=== PATIENT | female | born 2000 | race Asian ===

== ENCOUNTER 2023-01-14 17:56 | Emergency (ER) | payer OTHER, SELFPAY ==
[2023-01-14 18:00] VITALS: BP 120/82; PULSE 99; RESP 18; TEMP 37; O2SAT 100; BMI 18.0
[2023-01-14 20:00] VITALS: O2SAT 99
--- NOTE | 2023-01-14 20:08 | CRLHL7_ITS ---
For Patients: As a result of the Century Cures Act, medical imaging exams and procedure reports are released immediately into your electronic medical record. You may view this report before your referring provider. If you have questions, please contact your health care provider. INDICATION: Abdominal pain. TECHNIQUE: CT abdomen and pelvis acquired with 56 cc Isovue 370 IV contrast. COMPARISON: None. FINDINGS: Lower chest: Unremarkable. Liver: Unremarkable. Normal in size and attenuation. No suspicious masses. Gallbladder and bile ducts: Unremarkable. No stones or inflammation. No biliary ductal dilatation. Spleen: Unremarkable. Normal in size. No masses. Adrenal glands: Unremarkable. No nodules. Pancreas: Unremarkable. No mass or inflammation. Kidneys: Unremarkable. No suspicious masses, stones, or hydronephrosis. GI tract: Unremarkable. Normal in caliber. No evidence of obstruction. Appendix is not well visualized, however there is no evidence of right lower quadrant inflammatory stranding. Lymph nodes: No lymphadenopathy. Vasculature: Unremarkable. Omentum/Peritoneum/Abdominal Wall: Unremarkable. No free air or significant free fluid. Pelvis: Unremarkable. Bones: Unremarkable for age. IMPRESSION: No acute abdominal or pelvic abnormality. Please note that all CT scans at this facility use dose modulation, iterative reconstruction, and/or weight-based dosing when appropriate to reduce radiation dose to as low as reasonably achievable. Dictated by Donis Yin MD @ 01/14/2023 9:48:06 PM (Electronically Signed)
--- NOTE | 2023-01-14 20:19 | ED.GENADULT ---
HPI - General Adult General Chief complaint: Abdominal Pain Stated complaint: Vomiting blood Time Seen by Provider: 01/14/23 20:02 History of Present Illness HPI narrative: Patient is a healthy 22-year-old woman who has been having abdominal pain and vomiting for the last 10 days. Symptoms have been escalating for last 2-3 days she has had a small amount of blood in her stool and her vomitus. She states she is not sexually active and is not . She has had no fevers no chills no night sweats no cough no shortness of breath. She is concerned that her father has a history of lymphoma a but she has not noticed any lumps or bumps. She takes no anticoagulants. She has no other complaints or concerns at this time. Related Data Home Medications Medication Instructions Recorded Confirmed Concerta 01/14/23 Lexapro 01/14/23 Allergies Allergy/AdvReac Type Severity Reaction Status Date / Time No Known Drug Allergies Allergy Verified 01/14/23 20:34 Review of Systems Status of ROS: Reports: 10 or more systems reviewed and unremarkable except as noted in History and below Exam Narrative: Exam Narrative: EXAM GENERAL: Patient appears comfortable and well. EYES: No scleral icterus. LYMPH: No supraclavicular or cervical lymphadenopathy. SKIN: Visible skin seen during exam normal or with benign process only. EXT: No dependent lower extremity pedal edema. HEART: Regular rate and rhythm with no murmurs, rubs, or gallops. LUNGS: Clear to auscultation bilaterally with no crackles or wheezes. ABD: Soft, non tender, non distended. PSYCH: Good eye contact, speech is not pressured. Const: Vital Signs, click to edit/add: Vital Signs - 24 hr 01/14/23 18:00 Temperature 98.6 F Pulse Rate [Right Femoral] 99 Respiratory Rate 18 Blood Pressure [Ri ght Upper Arm] 120/82 Pulse Oximetry 100 Oxygen Delivery Me thod Room Air Course Course ED Course: Patient seen examined. CT of the abdomen pelvis CBC CMP amylase ordered. Vital Signs Vital signs: Initial Vital Signs Temperature 98.6 F 01/14/23 18:00 Temperature Source Temporal Artery Scan 01/14/23 18:00 Pulse Rate 99 01/14/23 18:00 Respiratory Rate 18 01/14/23 18:00 Blood Pressure 120/82 01/14/23 18:00 Blood Pressure Mean 94 01/14/23 18:00 Blood Pressure Position Sitting 01/14/23 18:00 Pulse Oximetry 100 01/14/23 18:00 Oxygen Delivery Method Room Air 01/14/23 18:00 Vital Signs Temperature 98.6 F 01/14/23 18:00 Pulse Rate 99 01/14/23 18:00 Respiratory Rate 18 01/14/23 18:00 Blood Pressure 120/82 01/14/23 18:00 Pulse Oximetry 100 01/14/23 18:00 Oxygen Delivery Method Room Air 01/14/23 18:00 Temperature 98.6 F 01/14/23 18:00 Pulse Rate 99 01/14/23 18:00 Respiratory Rate 18 01/14/23 18:00 Blood Pressure 120/82 01/14/23 18:00 Pulse Oximetry 100 01/14/23 18:00 Oxygen Delivery Method Room Air 01/14/23 18:00 Medical Decision Making MDM Narrative Medical decision making narrative: Patient presents with refractory nausea and vomiting. She on her laboratory studies does have what appears to be a chronic microcytic anemia. CT of the abdomen pelvis is unremarkable electrolytes are unremarkable. Her exam is normal with the exception that she is very thin. She does have heavy menses. She is on iron supplementation. At this time I do think the best course of action is to treat her vomiting with Zofran and recommend outpatient follow-up with bulk fluids handler. Give her copy my card so can help facilitate her follow-up. Lab Data Labs: Lab Results 01/14/23 Range/Units 20:10 WBC 5.65 (4.50-11.00) K/uL RBC 4.31 (4.00-5.20) m/uL Hgb 8.6 L (12.0-16.0) gm/dL Hct 29.8 L (33.0-51.0) % MCV 69 L (80-100) fL MCH 20 L (26-34) pg MCHC 29 L (32-36) gm/dL RDW Coeff of Ulises 17.0 H (11.5-15.5) % Plt Count 274 (140-440) K/uL Neut % (Auto) 37.1 L (42.0-72.0) % Lymph % (Auto) 54.2 H (20-44) % Barnwell % (Auto) 6.0 (0.0-11.0) % Eos % (Auto) 1.4 (0.0-7.0) % Baso % (Auto) 1.1 (0.0-3.0) % Neut # (Auto) 2.10 (1.7-7.0) K/uL Lymph # (Auto) 3.10 H (0.90-2.90) K/uL Barnwell # (Auto) 0.30 (0.00-0.90) K/UL Eos # (Auto) 0.08 (0.00-0.50) K/uL Baso # (Auto) 0.06 (0.00-0.30) K/uL Abs Immat Gran (auto) 0.01 (0.00-0.30) K/uL Imm/Tot Granulo (auto) 0.2 % Sodium 141 (135-149) mmol/L Potassium 3.8 (3.6-5.1) mmol/L Chloride 105 (96-114) mmol/L Carbon Dioxide 24 (20-32) mmol/L Anion Gap 12 (7-15) mEq/L BUN 14 (5-24) mg/dL Creatinine 0.7 (0.5-1.5) mg/dL Estimated Creat Clear 103.81 Estimated GFR 125 ml/min Glucose 89 (60-115) mg/dL Calcium 10.1 (8.4-10.6) mg/dL Total Bilirubin 0.4 (0.1-1.5) mg/dL AST 29 (12-35) U/L ALT 9 (4-35) U/L Alkaline Phosphatase 43 (40-150) U/L Total Protein 8.0 (6.0-8.3) g/dL Albumin 4.8 (3.3-5.0) g/dL Amylase 91 H (18-89) U/L Discharge Plan Discharge Clinical Impression: Vomiting Patient Disposition: Home, Self-Care Condition: Stable Instructions: Acute Nausea and Vomiting (ED), Anemia (ED) Additional Instructions: Salliefran as directed Continue iron supplementation Follow-up with Dr. Young/JOSIAH dos santos in [place] Activity Level: No Restrictions Discharge Diet: Regular Prescriptions: No Action Lexapro Concerta Follow Up/Referrals: Provider,Not a Local [Primary Care Provider] - Stand Alone Forms: [employer] Info Instructions
[2023-01-14 20:20] LABS: Basophils Absolute Auto 0.06 K/uL (0.00-0.30); Basophils Percent Auto 1.1 % (0.0-3.0); Eosinophils Absolute Auto 0.08 K/uL (0.00-0.50); Eosinophils Percent Auto 1.4 % (0.0-7.0); Hematocrit 29.8 % (33.0-51.0); Hemoglobin* 8.6 gm/dL (12.0-16.0); Immature Granulocytes Abs Auto 0.01 K/uL (0.00-0.30); Immature Granulocytes Pct Auto 0.2 %; Lymphocytes Percent Auto 54.2 % (20-44); Mean Corpuscular HGB Conc 29 gm/dL (32-36); Mean Corpuscular Hemoglobin 20 pg (26-34); Mean Corpuscular Volume 69 fL (80-100); Neutrophils Percent Auto 37.1 % (42.0-72.0); Platelet Count* 274 K/uL (140-440); Red Blood Count 4.31 m/uL (4.00-5.20); White Blood Count* 5.65 K/uL (4.50-11.00)
[2023-01-14 20:25] LABS: Slide Review Reflex No
[2023-01-14 20:31] LABS: Albumin* 4.8 g/dL (3.3-5.0)
[2023-01-14 20:32] LABS: Chloride* 105 mmol/L (96-114); Potassium* 3.8 mmol/L (3.6-5.1); Sodium* 141 mmol/L (135-149)
[2023-01-14 20:34] LABS: Amylase* 91 U/L (18-89); Anion Gap 12 mEq/L (7-15); Bilirubin Total* 0.4 mg/dL (0.1-1.5); Carbon Dioxide* 24 mmol/L (20-32); Creatinine* 0.7 mg/dL (0.5-1.5); Est. Creatinine Clearance* 103.81; Estimated Glomerular Filt Rate 125 ml/min
[2023-01-14 20:35] LABS: Alanine Aminotransferase* 9 U/L (4-35); Alkaline Phosphatase* 43 U/L (40-150); Aspartate Amino Transferase* 29 U/L (12-35); Blood Urea Nitrogen* 14 mg/dL (5-24); Calcium* 10.1 mg/dL (8.4-10.6); Glucose* 89 mg/dL (60-115)
[2023-01-14 22:09] VITALS: BP 188/80; PULSE 85; RESP 18; TEMP 36.8; O2SAT 99
[2023-01-14 22:10] VITALS: BP 118/80; PULSE 85; RESP 18; TEMP 36.8
== END 2023-01-14 22:11 | disposition home or self-care (01) ==
PROVIDERS: Emergency Provider Internal Medicine
DX: R11.10 Vomiting, unspecified (principal)
CPT/HCPCS: 36415; 74177; 80053; 82150; 85025; 94761; 99283; 99284; 99285; Q9967